=== PATIENT | male | born 1970 | race Caucasian/White ===

== ENCOUNTER 2024-09-22 06:35 | Day surgery (SDC) | payer OTHER, SELFPAY ==
[2024-09-22 08:32] LABS: Glucose - Point of Care 130 mg/dl (70-99)
== END 2024-09-22 11:31 | disposition home or self-care (01) ==
LOC: GI 06:35
PROVIDERS: ATTENDING PHYSICIAN Student in an Organized Health Care Education/Training Program
DX: D50.9 Iron deficiency anemia, unspecified (principal); D12.2 Benign neoplasm of ascending colon; K62.1 Rectal polyp; K57.30 Diverticulosis of large intestine without perforation or abscess without bleeding; R12 Heartburn; K22.2 Esophageal obstruction; K44.9 Diaphragmatic hernia without obstruction or gangrene; K31.89 Other diseases of stomach and duodenum
CPT/HCPCS: 45385; 45380; 43239; 88305; 82962; 88342

== ENCOUNTER 2024-12-08 06:16 | Day surgery (SDC) | payer OTHER, SELFPAY ==
[2024-12-08 07:58] VITALS: BMI 24.7
[2024-12-08 07:59] VITALS: BMI 24.7
[2024-12-08 08:00] VITALS: BP 130/71
[2024-12-08 08:20] LABS: Glucose - Point of Care 221 mg/dl (70-99)
--- NOTE | 2024-12-08 09:32 | PTCARENOTE ---
Patient's blood sugar found to be 221 at 0817. Anesthesia made aware, no treatment ordered. Will continue to montior per protocol.
[2024-12-08 10:43] VITALS: BP 98/68
[2024-12-08 10:45] VITALS: BP 107/67
[2024-12-08 10:54] LABS: Glucose - Point of Care 215 mg/dl (70-99)
[2024-12-08 11:00] VITALS: BP 111/75
== END 2024-12-08 11:17 | disposition home or self-care (01) ==
LOC: GI 06:16
PROVIDERS: ATTENDING PHYSICIAN Internal Medicine Gastroenterology
DX: K31.89 Other diseases of stomach and duodenum (principal); R16.1 Splenomegaly, not elsewhere classified; I77.89 Other specified disorders of arteries and arterioles
CPT/HCPCS: 43237; 43239; 88305; 82962

== ENCOUNTER → 2024-12-31 06:54 | Outpatient (REF) | payer OTHER, SELFPAY ==
[2024-12-31 07:15] VITALS: BP 125/69; BP_SYST 75
[2024-12-31 07:28] LABS: INR 0.93; PT 12.8 Sec (11.4-14.6)
[2024-12-31 07:31] LABS: Hematocrit 35.6 % (39.0-52.0); Hemoglobin 10.8 g/dL (13.0-18.0); Mean Corp Hgb Conc. 30.3 g/dL (33.0-37.0); Mean Corpuscular Hgb 23.9 pg (27.0-31.0); Mean Corpuscular Volume 78.8 fL (80.0-94.0); Mean Platelet Volume 9.4 fL (7.4-10.4); Platelet Count 159 10^3/uL (130-400); Red Blood Cell Count 4.52 10^6/uL (4.70-6.10); Red Cell Dist. Width 15.9 % (11.5-14.5); White Blood Cell Count 10.3 10^3/uL (4.8-10.8)
[2024-12-31] MEDS: ATIVAN 0.5 MG IV (07:55)
[2024-12-31] MEDS: FLUSH (NSS) 1 FLUSH IV (07:55)
[2024-12-31] MEDS: NSS (PRESERVATIVE FREE) 0.25 ML IV (07:55)
[2024-12-31 08:25] LABS: Absolute Neutrophils -Man Diff 2.6 10^3/uL (1.4-6.5); Atypical Lymphocytes 8 %; Band Neutrophils 0 % (0-3); Eosinophils 1 % (0-6); Lymphocytes 57 % (20-51); Monocytes 6 % (2-9); Plasmacytoid Lymphocytes 2 %; Segmented Neutrophils 26 % (42-75)
[2024-12-31 08:27] LABS: Normal RBC Morphology Yes; Platelets Checked Yes; Total Cells Counted 100
[2024-12-31 09:02] VITALS: BP 125/79
== END ==
LOC: RADI 06:54
PROVIDERS: ATTENDING PHYSICIAN Internal Medicine Hematology & Oncology; FAMILY PHYSICIAN Internal Medicine; OTHER PHYSICIAN Physician Assistant
DX: C85.10 Unspecified B-cell lymphoma, unspecified site (principal); D50.9 Iron deficiency anemia, unspecified; D47.2 Monoclonal gammopathy; Z01.812 Encounter for preprocedural laboratory examination; Z01.818 Encounter for other preprocedural examination
CPT/HCPCS: 88305; 88311; 88312; 36415; 38222; 77012; 85025; 85610; 88313

== ENCOUNTER → 2025-01-04 07:43 | Outpatient (REF) | payer OTHER, SELFPAY | LOC: RAD 07:43 | PROVIDERS: ATTENDING PHYSICIAN Internal Medicine Hematology & Oncology; FAMILY PHYSICIAN Internal Medicine | DX: D50.9 Iron deficiency anemia, unspecified (principal); D47.2 Monoclonal gammopathy | CPT/HCPCS: 71260; 74177; Q9967 ==

== ENCOUNTER → 2025-01-14 13:09 | Outpatient (REF) | payer OTHER, SELFPAY | LOC: PET 13:09 | PROVIDERS: ATTENDING PHYSICIAN Internal Medicine Hematology & Oncology | DX: C88.80 Other malignant immunoproliferative diseases not having achieved remission (principal) | CPT/HCPCS: 78815; A9552 ==

== ENCOUNTER → 2025-04-21 07:05 | Outpatient (REF) | payer OTHER, SELFPAY | LOC: RAD 07:05 | PROVIDERS: ATTENDING PHYSICIAN Student in an Organized Health Care Education/Training Program; FAMILY PHYSICIAN Internal Medicine | DX: R16.1 Splenomegaly, not elsewhere classified (principal) | CPT/HCPCS: 76700; 93975 ==